=== PATIENT | female | born 1965 | race African-American/Black ===

== ENCOUNTER 2017-10-19 14:06 | Emergency (ER) | payer OTHER ==
[~2017-10-19] VITALS: Ht 160 cm; Wt 55.0 kg
[~2017-10-19 14:06] MED LIST: IBUP200C5 PO
[2017-10-19 15:28] VITALS: BP 113/77
[2017-10-19] MEDS ORDERED: ACETAMINOPHEN 325MG TABLET PO ONE (15:30)
[2017-10-19] MEDS ORDERED: IBUPROFEN 400MG TABLET PO ONE (15:30)
== END 2017-10-19 16:23 | disposition home or self-care (01) ==
LOC: ER 14:06
DX: R07.89 Other chest pain (principal); M79.642 Pain in left hand; F12.10 Cannabis abuse, uncomplicated; F17.200 Nicotine dependence, unspecified, uncomplicated; V89.2XXA Person injured in unspecified motor-vehicle accident, traffic, initial encounter; Y92.410 Unspecified street and highway as the place of occurrence of the external cause; Y99.8 Other external cause status; Y92.89 Other specified places as the place of occurrence of the external cause
CPT/HCPCS: 71111; 73130; 99284

== ENCOUNTER 2018-03-26 15:17 | Emergency (ER) | payer OTHER ==
[~2018-03-26] VITALS: Ht 154.9 cm; Wt 45.0 kg
[2018-03-26] MEDS ORDERED: SODIUM CHLORIDE 0.9% 1,000 ML IV ONE (22:01)
[2018-03-26] MEDS ORDERED: MORPHINE SULFATE 4 MG/ML CPJ (NOT FOR IM USE) IV STA (22:01)
[2018-03-26] MEDS ORDERED: ONDANSETRON HCL 4MG/2ML VIAL IV STA (22:01)
[2018-03-26 22:28] LABS: BASOPHILS % 0.4 % (0.0-2.0); EOSINOPHILS % 0.5 % (0.0-5.0); HEMATOCRIT. 45.5 % (36.0-48.0); HEMOGLOBIN. 15.2 g/dL (12.0-16.0); LYMPHOCYTES % 17.3 % (20.0-50.0); MEAN CORPUSCULAR HEMOGLOBIN 31.6 pg (28.0-32.0); MEAN CORPUSCULAR VOLUME 94.7 fL (81.0-99.0); MEAN PLATELET VOLUME 7.6 fl (7.4-10.4); MONOCYTES % 7.8 % (2.0-8.0); PLATELET 408 x1000/uL (130-400); RED CELL DISTRIBUTION WIDTH 14.7 % (11.6-14.6)
[2018-03-26 22:31] LABS: CHLORIDE 99 mEq/L (98-107)
[2018-03-26 22:35] LABS: ETHANOL BLOOD < 10 mg/dL
[2018-03-26 22:36] LABS: PARTIAL THROMBOPLASTIN TIME 27.8 sec (23.4-31.0)
[2018-03-27 01:58] LABS: CLARITY URINE CLEAR (CLEAR); COLOR URINE YELLOW (YELLOW); KETONES URINE 3+ (NEGATIVE); LEUKOCYTE ESTERASE URINE TRACE (NEGATIVE); NITRITE URINE NEGATIVE (NEGATIVE); OCCULT BLOOD URINE 1+ (NEGATIVE); PROTEIN URINE NEGATIVE (NEGATIVE); SPECIFIC GRAVITY URINE 1.052 (1.005-1.030)
[2018-03-27 03:45] VITALS: BP 103/65
[2018-03-27] MEDS ORDERED: IOHEXOL-300 100 ML BOTTLE ONE (06:31)
== END 2018-03-27 04:07 | disposition home or self-care (01) ==
LOC: ER 15:17
DX: R10.9 Unspecified abdominal pain (principal); R11.10 Vomiting, unspecified; N39.0 Urinary tract infection, site not specified; F17.200 Nicotine dependence, unspecified, uncomplicated
CPT/HCPCS: 36415; 71260; 74177; 80053; 81003; 83690; 84484; 85025; 85610; 85730; 96361; 96374; 96375; 99285; G0482; J2270; J2405; J7030; Q9967; Z7610